=== PATIENT | female | born 1970 | race Caucasian/White ===

== ENCOUNTER 2019-06-22 12:54 | Inpatient (IN) | payer OTHER ==
[~2019-06-22] VITALS: Ht 165.1 cm; Wt 66.4 kg
[2019-06-22] MEDS ORDERED: KETOROLAC TROMETHAMINE 30 MG/ML VIAL IV STA (13:05)
[2019-06-22] MEDS ORDERED: SODIUM CHLORIDE 0.9% 1000ML 1,000 ML IV STA ×2 (13:05→13:17)
[2019-06-22] MEDS ORDERED: ONDANSETRON HCL INJ 2MG/ML 2ML 2 MG/ML VIAL IV STA ×2 (13:05→13:17)
[2019-06-22] MEDS ORDERED: DICYCLOMINE HCL 20 MG/2 ML VIAL IM ONE (13:30)
[2019-06-22 13:56] LABS: BILIRUBIN,URINE SMALL (NEGATIVE); CLARITY,URINE SL CLOUDY (CLEAR); COLOR,URINE YELLOW (YELLOW); KETONES,URINE TRACE (NEGATIVE); LEUKOCYTE ESTERASE ,URINE TRACE (NEGATIVE); NITRITE,URINE NEGATIVE (NEGATIVE); PROTEIN,URINE DIPSTICK 2+ (NEGATIVE); URINE UROBILINOGEN 0.2 mg/dL (0.2 - 1)
[2019-06-22 14:01] LABS: BASOPHILS % 0.2 % (0.0-1.0); HEMATOCRIT 41.1 % (34.2-44.1); HEMOGLOBIN 14.2 g/dL (12.0-16.0); LYMPHOCYTES # (AUTO) 1.6 (1.0-3.2); MEAN CORPUSCULAR HEMOGLOBIN 30.7 pg (28-32); MEAN CORPUSCULAR HGB CONC 34.5 g/dL (31-35); MONOCYTES # (AUTO) 0.7 (0.2-0.8); MONOCYTES % 4.8 % (4.4-11.3); NEUTROPHILS # (AUTO) 12.1 (2.1-6.9); NEUTROPHILS % 83.7 % (38.7-80.0); PLATELET COUNT 376 x10e3/uL (140-360); RED BLOOD COUNT 4.62 x10e6/uL (3.6-5.1)
[2019-06-22 14:10] LABS: BACTERIA,URINE FEW /HPF; CALCIUM OXALATE CRYSTALS,UR MODERATE (FEW); EPITHELIAL CELLS,URINE FEW /LPF; RBC,URINE 0-5 /HPF (0-5)
[2019-06-22 14:24] LABS: ALANINE AMINOTRANSFERASE 13 IU/L (0-55); ALBUMIN 4.5 g/dL (3.5-5.0); ALBUMIN/GLOBULIN RATIO 1.3 (0.8-2.0); ALKALINE PHOSPHATASE 62 IU/L (40-150); ANION GAP 19.5 mmol/L (8-16); BLOOD UREA NITROGEN 10 mg/dL (7-26); BUN/CREATININE RATIO 11 (6-25); CALCIUM 10.2 mg/dL (8.4-10.2); CARBON DIOXIDE 23 mmol/L (22-29); CHLORIDE 97 mmol/L (98-107); CREATINE KINASE 138 IU/L (29-168); CREATININE, SERUM 0.91 mg/dL (0.57-1.11); EST GLOMERULAR FILTRATION RATE > 60 ML/MIN (60-); GLUCOSE 136 mg/dL (74-118); LIPASE 19 U/L (8-78); POTASSIUM 3.5 mmol/L (3.5-5.1); SODIUM 136 mmol/L (136-145)
--- NOTE | 2019-06-22 14:33 | Diagnostic Imaging Report ---
Exam: KUB - 2 views Clinical History: Abdominal pain Comparison: None Findings: Multiple dilated loops of small bowel in the left abdomen measure up to 4.3 cm in maximum diameter with multiple air-fluid levels. There is a possibly of colonic bowel gas. No gas in the rectum. No free air. No abnormal calcifications. The osseous structures appear unremarkable. The visualized portions of the lung bases are clear. Impression: Findings consistent with small bowel obstruction. Dilated loops of small bowel with air-fluid levels measure up to 4.3 cm. No free air. Signed by: Ector Mccormick MD on 06/22/2019 2:29 PM
[2019-06-22] MEDS ORDERED: BENZOCAINE/TETRACAINE/BUTAMBEN AERO SPRAY 56 GM CAN TOP ONE (14:45)
[2019-06-22] MEDS ORDERED: DIATRIZOATE MEGL/DIATRIZOA SOD 30 ML BTL PO ONE (14:56)
[2019-06-22] MEDS ORDERED: IOPAMIDOL 370 MG/ML 200 ML INFUS..BTL INJ ONE (14:56)
[2019-06-22] MEDS ORDERED: SODIUM CHLORIDE 0.9% 50ML 50 ML ONE (14:56)
[2019-06-22] MEDS ORDERED: ONDANSETRON HCL INJ 2MG/ML 2ML 2 MG/ML VIAL IV ONE (15:05)
[2019-06-22] MEDS ORDERED: MORPHINE SULFATE 2 MG/ML SYR 1ML IV STA (15:05)
[2019-06-22] MEDS ORDERED: MORPHINE SULFATE INJ 4 MG/ML INJ 1ML IV ONE (15:15)
--- NOTE | 2019-06-22 15:48 | Diagnostic Imaging Report ---
EXAMINATION: CHEST SINGLE (PORTABLE) INDICATION: NG tube placement COMPARISON: None FINDINGS: LINES/TUBES:NG tube projects below the diaphragm with tip in the stomach and side port in the esophagus above the GE junction. LUNGS:The lungs are well-inflated. No focal consolidation or pulmonary edema. PLEURA:No pleural effusion or pneumothorax. MEDIASTINUM:The cardiomediastinal silhouette appears normal in size and shape. BONES/SOFT TISSUES:No acute osseous injury. ABDOMEN:No free air under the diaphragm. IMPRESSION: NG tube with tip in the stomach and side port in the distal esophagus. Recommend advancing tube approximately 10 cm. Signed by: Ector Mccormick MD on 06/22/2019 3:45 PM
[2019-06-22] MEDS ORDERED: SODIUM CHLORIDE FLUSH 10 ML SYR INJ PRN (16:15)
[2019-06-22] MEDS ORDERED: MORPHINE SULFATE 2 MG/ML SYR 1ML IV PRN (16:15)
[2019-06-22] MEDS: SODIUM CHLORIDE 0.9% 1000ML 1,000 ML IV SCH (16:20)
[2019-06-22] MEDS ORDERED: CITALOPRAM HBR40 MG PO (16:38)
[2019-06-22] MEDS ORDERED: ALPRAZOLAM0.5 MG PO (16:38)
--- NOTE | 2019-06-22 16:46 | Diagnostic Imaging Report ---
EXAM: CT Abdomen and Pelvis WITH intravenous contrast INDICATION: Small bowel obstruction COMPARISON: KUB of earlier the same day TECHNIQUE: Abdomen and pelvis were scanned utilizing a multidetector helical scanner from the lung base to the pubic symphysis after administration of IV contrast. Coronal and sagittal reformations were obtained. Routine protocol was performed. Scan was performed when during portal venous phase. IV CONTRAST: 100mL of Isovue 370 ORAL CONTRAST: Gastrografin COMPLICATIONS: None RADIATION DOSE: Total DLP: 246.6 mGy*cm Dose modulation, iterative reconstruction, and/or weight based adjustment of the mA/kV was utilized to reduce the radiation dose to as low as reasonably achievable. FINDINGS: LOWER THORAX: NG tube terminates in the proximal stomach. HEPATOBILIARY: Geographic hypodense area in the right liver adjacent to the falciform ligament may represent focal fatty infiltration. No other focal liver lesions. No biliary ductal dilation. The gallbladder appears unremarkable. SPLEEN: No splenomegaly. PANCREAS: No focal masses or ductal dilatation. ADRENALS: No adrenal nodules. KIDNEYS/URETERS: No hydronephrosis or renal calculi. Subcentimeter hypodensities in both kidneys are too small to adequately characterize but likely represent cysts. PELVIC ORGANS/BLADDER: Status post hysterectomy. PERITONEUM / RETROPERITONEUM: No free air or fluid. LYMPH NODES: No lymphadenopathy. VESSELS: Mild scattered atherosclerotic calcifications of the nonaneurysmal abdominal aorta and major branches. GI TRACT: There are numerous dilated loops of small bowel with air-fluid levels consistent with small bowel obstruction. The most prominent loops measure up to approximately 3.5 cm in diameter. The transition point appears to be in the right lower quadrant (series 301 image 30). The distal ileum and the colon are decompressed. BONES AND SOFT TISSUES: Unremarkable. IMPRESSION: Small bowel obstruction. Transition point likely in the right lower quadrant. NG tube terminates just beyond the GE junction and should be advanced approximately 10 cm. Signed by: Ector Mccormick MD on 06/22/2019 4:42 PM
[2019-06-22] MEDS: PIPER-TAZ 3.375 GM 50 ML IV SCH ×2 (16:52→22:45)
--- NOTE | 2019-06-22 17:00 | NUR ---
RECD PT FROM EMILIA ZARATE,AAOX3,NGT TO RT BIANCA TO LIS.DENIES PAIN AT THIS TIME.NGT ADVANCED EDIN FLORES.
--- OUTSIDE RECORDS SUMMARY | 2019-06-22 17:08 | XMS REPORT ---
Author Author [facility] Address Unknown Phone Unavailable Care Team Providers Care Attenuator Name Role Phone Dotty DOSS Unavailable Unavailable Problems This patient has no known problems. Allergies, Adverse Reactions, Alerts This patient has no known allergies or adverse reactions. Medications This patient has no known medications. Results Test Description Test Time Test Comments Text Results Atomic Results Result Comments CT ABDOMEN/PELVIS W 2019-06-22 16:22:00 [facility] [address] [address] Patient Name: SAMEER WHEELER MR #: [id number] : 1970 Age/Sex: 49/F Req #: [id number] Adm Physician: Ordered by: RANDA FOURNIER RAIL EXPRESS CLERK Report #: [id number] Location: ER Room/Bed: Procedure: [id number] CT/CT ABDOMEN/PELVIS W Exam Date: 06/22/19 Exam Time: 1550 REPORT STATUS: Signed EXAM: CT Abdomen and Pelvis WITH intravenous contrast INDICATION: Small bowel obstruction COMPARISON: KUB of earlier the same day TECHNIQUE: Abdomen and pelvis were scanned utilizing a multidetector helical scanner from the lung base to the pubic symphysis after administration of IV contrast. Coronal and sagittal reformations were obtained. Routine protocol was performed. Scan was performed when during portal venous phase. IV CONTRAST: 100mL of Isovue 370 ORAL CONTRAST: Gastrografin COMPLICATIONS: None RADIATION DOSE: Total DLP: 246.6 mGy*cm Dose modulation, iterative reconstruction, and/or weight based adjustment of the mA/kV was utilized to reduce the radiation dose to as low as reasonably achievable. FINDINGS: LOWER THORAX: NG tube terminates in the proximal stomach. HEPATOBILIARY: Geographic hypodense area in the right liver adjacent to the falciform ligament may represent focal fatty infiltration. No other focal liver lesions. No biliary ductal dilation. The gallbladder appears unremarkable. SPLEEN: No splenomegaly. PANCREAS: No focal masses or ductal dilatation. ADRENALS: No adrenal nodules. KIDNEYS/URETERS: No hydronephrosis or renal calculi. Subcentimeter hypodensities in both kidneys are too small to adequately characterize but likely represent cysts. PELVIC ORGANS/BLADDER: Status post hysterectomy. PERITONEUM / RETROPERITONEUM: No free air or fluid. LYMPH NODES: No lymphadenopathy. VESSELS: Mild scattered atherosclerotic calcifications of the nonaneurysmal abdominal aorta and major branches. GI TRACT: There are numerous dilated loops of small bowel with air-fluid levels consistent with small bowel obstruction. The most prominent loops measure up to approximately 3.5 cm in diameter. The transition point appears to be in the right lower quadrant (series 301 image 30). The distal ileum and the colon are decompressed. BONES AND SOFT TISSUES: Unremarkable. IMPRESSION: Small bowel obstruction. Transition point likely in the right lower quadrant. NG tube terminates just beyond the GE junction and should be advanced approximately 10 cm. Signed by: Paula Bower MD on 06/22/2019 4:42 PM Dictated By: PAULA BOWER MD 1642 Transcribed By: ADRIEN on 06/22/19 1642 COPY TO: RANDA FOURNIER NP CHEST SINGLE (PORTABLE) 2019-06-22 15:43:00 [address] [place] [address] Patient Name: SAMEER WHEELER MR #: [id number] : 1970 Age/Sex: 49/F Req #: [id number] Adm Physician: Ordered by: RANDA FOURNIER NP Report #: [id number] Location: ER Room/Bed: Procedure: [id number] DX/CHEST SINGLE (PORTABLE) Exam Date: Exam Time: REPORT STATUS: Signed EXAMINATION: CHEST SINGLE (PORTABLE) INDICATION: NG tube placement COMPARISON: None FINDINGS: LINES/TUBES:NG tube projects below the diaphragm with tip in the stomach and side port in the esophagus above the GE junction. LUNGS:The lungs are well-inflated. No focal consolidation or pulmonary edema. PLEURA:No pleural effusion or pneumothorax. MEDIASTINUM:The cardiomediastinal silhouette appears normal in size and shape. BONES/SOFT TISSUES:No acute osseous injury. ABDOMEN:No free air under the diaphragm. IMPRESSION: NG tube with tip in the stomach and side port in the distal esophagus. Recommend advancing tube approximately 10 cm. Signed by: Paula Bower MD on 06/22/2019 3:45 PM Dictated By: PAULA BOWER MD 1545 Transcribed By: ADRIEN on 06/22/19 2098 COPY TO: RANDA FOURNIER RAIL EXPRESS CLERK ABDOMEN 2 VIEW 2019-06-22 14:27:00 [address] [place] [address] Patient Name: SAMEER WHEELER MR #: [id number] : 1970 Age/Sex: 49/F Req #: [id number] Adm Physician: Ordered by: RANDA FOURNIER RAIL EXPRESS CLERK Report #: [id number] Location: ER Room/Bed: Procedure: [id number] DX/ABDOMEN 2 VIEW Exam Date: Exam Time: REPORT STATUS: Signed Exam: KUB - 2 views Clinical History: Abdominal pain Comparison: None Findings: Multiple dilated loops of small bowel in the left abdomen measure up to 4.3 cm in maximum diameter with multiple air-fluid levels. There is a possibly of colonic bowel gas. No gas in the rectum. No free air. No abnormal calcifications. The osseous structures appear unremarkable. The visualized portions of the lung bases are clear. Impression: Findings consistent with small bowel obstruction. Dilated loops of small bowel with air-fluid levels measure up to 4.3 cm. No free air. Signed by: Paula Bower MD on 06/22/2019 2:29 PM Dictated By: PAULA BOWER MD 1429 Transcribed By: ADRIEN on 06/22/191428 COPY TO: RANDA FOURNIER NP
[2019-06-22 17:30] VITALS: BP 178/84
[2019-06-22] MEDS ORDERED: TEMAZEPAM15 MG PO (17:35)
--- NOTE | 2019-06-22 18:27 | Diagnostic Imaging Report ---
EXAM: Abdomen 1 Views INDICATION: ^NGT PLACEMENT ^[id number] ^1750 ^Y COMPARISON: Same day CT FINDINGS: See impression. IMPRESSION: Subdiaphragmatic nasogastric tube with tip projecting over the exact location of gastric antrum. Again seen gaseous distention of small bowel loops. Contrast excretion through the bilateral renal collecting system. Signed by: Dr. Shay Warren MD on 06/22/2019 6:24 PM
[2019-06-22] MEDS: ONDANSETRON HCL INJ 2MG/ML 2ML 2 MG/ML VIAL IV PRN (18:30)
[2019-06-22] MEDS: MORPHINE SULFATE INJ 4 MG/ML INJ 1ML IV PRN ×2 (18:30→22:30)
[2019-06-22] MEDS ORDERED: HYDRALAZINE HCL 20 MG/ML VIAL IV PRN (19:15)
--- NOTE | 2019-06-22 19:51 | NUR ---
RECEIVED PT IN BED .NGT IN PLACE RESPIRATIONS ARE EVEN AND UNLABORED .LAC 20 NS RUNNING AT 125 CC/HR .OMI PAIN CALL LIGT WITH IN REACH .CONTINUE TO MONITOR
[2019-06-22 20:30] VITALS: BP 138/75
[2019-06-22] MEDS: DIPHENHYDRAMINE HCL INJ 50 MG/ML VIAL IV PRN (20:55)
[2019-06-22 21:39] VITALS: BP 138/75
[2019-06-23] VITALS (9 sets, daily range): BP systolic 120–153; BP diastolic 65–86
--- NOTE | 2019-06-23 01:47 | History and Physical ---
CHIEF COMPLAINT: The patient comes in with abdominal pain, nausea and cramps. HISTORY PRESENT ILLNESS: This is . Horacio Land, who started out with abdominal pain on Thursday night. The patient had eaten avocado fried on Thursday and did notice some abdominal pain, but on Thursday night, the patient pain got worse and she had no bowel movement. She had 2 suppositories and also had some Dulcolax and did not have any bowel movement. The patient's nausea continued and this morning she woke up, she had vomiting x6 and also extensive nausea. She was brought into the emergency room by her neighbor and was found to have small-bowel obstruction and admitted for the same. PAST MEDICAL HISTORY: Noncontributory. PAST SURGICAL HISTORY: History of appendectomy, hysterectomy, and . The patient also has a history of BAILEE-1 with early cervical cancer. Otherwise, the patient's surgical history is noncontributory. MEDICATIONS: None. ALLERGIES: THE PATIENT IS ALLERGIC TO DEMEROL. FAMILY HISTORY: Noncontributory. REVIEW OF SYSTEMS: Negative for chest pain. Positive for nausea. Positive vomiting. No diarrhea. Positive for constipation. No rectal bleeding. No hematochezia. No hematemesis. Positive abdominal pain. No diplopia. No blurry vision. Positive for headache. PHYSICAL EXAMINATION: VITAL SIGNS: Temperature is 97.9, pulse of 84, respirations of 18, blood pressure is 178/84. HEENT: Normocephalic, atraumatic. Pupils are reactive to light and accommodation. NG tube in place. CVS: S1 and S2 normal. Regular rate and rhythm. ABDOMEN: Bowel sounds positive right now. Tender in the epigastric and the periumbilical area. No rebound present. EXTREMITIES: No clubbing. No cyanosis. No edema. LABORATORY VALUES: Initial white count is 14,000, hemoglobin 14.2, hematocrit 41.1. Chemistry: Sodium 136, potassium 3.5, BUN of 10, creatinine 0.91. Troponins less than 0.01. The patient's urine shows some cloudiness and also moderate amount of blood in there. IMAGING STUDIES: Initial abdominal x-ray shows finding consistent with small-bowel obstruction. Abdominal CT done shows small bowel obstruction. Transition point likely in the right lower quadrant. NG tube terminates just beyond the GE junction. Chest x-ray within normal limits. NG tube seen and repeat abdominal x-ray shows diaphragmatic nasogastric tube with tip projecting over the exact location of the gastric antrum. ASSESSMENT: Small bowel obstruction. PLAN: Plan is to keep the patient n.p.o. NG tube to suction. The patient will be given IV fluids at 125 mL an hour. Labs to be monitored tomorrow. Surgical consult with Dr. Arzola obtained. The patient's lytes will be monitored. The patient's blood pressure is running high. We will give some IV hydralazine 10 mg as needed for blood pressure above 180 mmHg systolic and 90 above diastolic. Further recommendation per clinical course. The patient risks and benefits of SBO with surgery or nonsurgical treatment has been explained to the patient. MD AVTAR Darnell/MODL /[id number]
[2019-06-23] MEDS: ONDANSETRON HCL INJ 2MG/ML 2ML 2 MG/ML VIAL IV PRN ×6 (02:38→23:45)
[2019-06-23] MEDS: MORPHINE SULFATE INJ 4 MG/ML INJ 1ML IV PRN ×6 (02:48→23:45)
[2019-06-23] MEDS: SODIUM CHLORIDE 0.9% 1000ML 1,000 ML IV SCH ×3 (04:10→16:07)
[2019-06-23 05:34] LABS: BASOPHILS % 0.4 % (0.0-1.0); EOSINOPHILS # (AUTO) 0.1 (0.0-0.4); EOSINOPHILS % 0.6 % (0.0-6.0); HEMATOCRIT 32.3 % (34.2-44.1); LYMPHOCYTES # (AUTO) 1.8 (1.0-3.2); LYMPHOCYTES % 17.9 % (18.0-39.1); MEAN CORPUSCULAR HEMOGLOBIN 31.2 pg (28-32); MEAN CORPUSCULAR HGB CONC 34.1 g/dL (31-35); MEAN CORPUSCULAR VOLUME 91.5 fL (81-99); MONOCYTES # (AUTO) 0.8 (0.2-0.8); MONOCYTES % 7.9 % (4.4-11.3); NEUTROPHILS # (AUTO) 7.3 (2.1-6.9); PLATELET COUNT 260 x10e3/uL (140-360); RED BLOOD COUNT 3.53 x10e6/uL (3.6-5.1); RED CELL DISTRIBUTION WIDTH 12.2 % (11.7-14.4)
[2019-06-23 05:58] LABS: ANION GAP 12.3 mmol/L (8-16); BLOOD UREA NITROGEN 9 mg/dL (7-26); BUN/CREATININE RATIO 12 (6-25); CALCIUM 8.3 mg/dL (8.4-10.2); CARBON DIOXIDE 25 mmol/L (22-29); CHLORIDE 104 mmol/L (98-107); CREATININE, SERUM 0.76 mg/dL (0.57-1.11); EST GLOMERULAR FILTRATION RATE > 60 ML/MIN (60-); GLUCOSE 104 mg/dL (74-118); POTASSIUM 3.3 mmol/L (3.5-5.1); SODIUM 138 mmol/L (136-145)
[2019-06-23] MEDS: PIPER-TAZ 3.375 GM 50 ML IV SCH ×3 (06:00→18:57)
--- NOTE | 2019-06-23 06:02 | NUR ---
PT C/O ITCHING NOTIFIED DR VIERA AND GOT THE ORDER TO GIVE BENADRYL IV .MEDICATED WITH BENADRYL IV
--- NOTE | 2019-06-23 06:56 | Diagnostic Imaging Report ---
EXAM: ABDOMEN 2 VIEW, DATE: 06/23/2019 8:00 AM INDICATION: Small bowel obstruction. COMPARISON: 06/22/2019. FINDINGS: LINES/TUBES: NG/orogastric tube with distal tip projected on the gastric antrum region. BOWEL PATTERN: Multiple mildly dilated small bowel loops without air within the rectum. Small volume of gas within ascending colon. SOFT TISSUES: No abnormal calcifications. No mass effect. LUNG BASES: Clear. BONES: No acute findings. IMPRESSION: No interval change. Findings again suggestive of an obstructive a small bowel gas pattern. Signed by: Dr. Xavier Rao M.D. on 06/23/2019 6:53 AM
--- NOTE | 2019-06-23 07:30 | NUR ---
PT C/0 PAIN AND MEDICATED WITH MORPHINE .IRRIGATED NG TUBE WITH NSX1 .BEDSIDE REPORT GIVEN TO THE ON COMING NURSE.
--- NOTE | 2019-06-23 07:30 | NUR ---
PT IN BED RESTING ,DENIES PAIN NO DISTRES NOTED,NGT TO LIS,TOLERATING WELL,NGT FLUSHED WITH 20 CC H2O
[2019-06-23] MEDS: DIPHENHYDRAMINE HCL INJ 50 MG/ML VIAL IV PRN ×2 (08:47→20:15)
[2019-06-23] MEDS: PANTOPRAZOLE 40 MG 10ML VIAL IV SCH (08:50)
--- NOTE | 2019-06-23 12:25 | NUR ---
PT UP IN BED NGT IN PLACE NO DISTRESS NOTED,
--- NOTE | 2019-06-23 17:22 | Progress Note ---
DATE: SUBJECTIVE: The patient is a 49-year-old female, comes in with small bowel obstruction. Currently, the patient is n.p.o., has an NG tube. She is on Zosyn 3.375 mg q.6 hours for IV antibiotics. The patient is in pain, get some morphine as needed. She also has hydralazine as needed for IV blood pressure medication. No BMs. No flatus and no nausea at this time. OBJECTIVE: VITAL SIGNS: Temperature is 97.6, pulse of 78, respirations of 18, and blood pressure is 128/68. HEENT: Normocephalic, atraumatic. The patient has NG tube to suction. CVS: S1, S2 normal, regular rhythm. ABDOMEN: Slightly distended, tender in the periumbilical area. Positive for very sluggish bowel sounds. EXTREMITIES: No clubbing, no cyanosis, no edema. LABORATORY VALUES: Hemoglobin is 11, hematocrit of 32.3. Chemistries; sodium 138, potassium 3.3, creatinine 0.76. Urine is normal. IMAGING STUDIES: Abdominal x-ray done today shows no interval changes for any and suggestive of obstruction or small bowel pattern. ASSESSMENT: Small bowel obstruction. Continue with IV antibiotics. Continue with IV fluids. Continue with NG suction. Continue with replacement of lytes as needed. Further recommendation and clinical course, we will discuss with the patient and Dr. Arzola is on board in the case. MD AVTAR Darnell/MODL /[id number]
--- NOTE | 2019-06-23 17:34 | NUR ---
DR HUYNH HERE.OK TO GIVE ANTIDEPRESSANT MED CLAMP NGT FOR THIRY MINUTED,PAIN LEVEL 3
--- NOTE | 2019-06-23 20:20 | NUR ---
PATIENT AOX3, NO DISTRESS NOTED. PATIENT COMPLAINED OF ITCHING AND WAS MEDICATED ORDERED. PATIENT ALSO VOICES A PAIN RATING OF 1, FAMILY MEMBER AT BEDSIDE, NG TUBE IS PATENT. BED LOCKED AND LOW, CALL LIGHT WITHIN EASY REACH, WILL CONTINUE TO MONITOR.
[2019-06-24] VITALS (7 sets, daily range): BP systolic 131–142; BP diastolic 70–83
[2019-06-24] MEDS: SODIUM CHLORIDE 0.9% 1000ML 1,000 ML IV SCH ×4 (00:05→23:42)
[2019-06-24] MEDS: PIPER-TAZ 3.375 GM 50 ML IV SCH ×4 (00:05→17:21)
--- NOTE | 2019-06-24 00:15 | NUR ---
PATIENT VOICED THAT SHE WAS IN EXTREME PAIN AND VERY NAUSEAS. PATIENT WAS MEDICATED ORDERED, CALL LIGHT WITHIN REACH WILL CONTINUE TO MONITOR.
--- NOTE | 2019-06-24 00:50 | NUR ---
PATIENT VOICED THAT SHE IS FEELING LESS PAIN AND NO NAUSEA. CURRENTLY RESTING COMFORTABLY, CONTINUING TO MONITOR.
[2019-06-24] MEDS: MORPHINE SULFATE INJ 4 MG/ML INJ 1ML IV PRN (05:25)
[2019-06-24] MEDS: ONDANSETRON HCL INJ 2MG/ML 2ML 2 MG/ML VIAL IV PRN ×3 (05:25→21:32)
[2019-06-24 05:55] LABS: BASOPHILS % 0.3 % (0.0-1.0); EOSINOPHILS # (AUTO) 0.1 (0.0-0.4); EOSINOPHILS % 0.8 % (0.0-6.0); HEMATOCRIT 32.5 % (34.2-44.1); HEMOGLOBIN 10.7 g/dL (12.0-16.0); LYMPHOCYTES # (AUTO) 1.1 (1.0-3.2); LYMPHOCYTES % 17.3 % (18.0-39.1); MEAN CORPUSCULAR HEMOGLOBIN 30.2 pg (28-32); MEAN CORPUSCULAR HGB CONC 32.9 g/dL (31-35); MEAN CORPUSCULAR VOLUME 91.8 fL (81-99); MONOCYTES # (AUTO) 0.6 (0.2-0.8); MONOCYTES % 9.2 % (4.4-11.3); NEUTROPHILS # (AUTO) 4.6 (2.1-6.9); NEUTROPHILS % 72.2 % (38.7-80.0); PLATELET COUNT 244 x10e3/uL (140-360); RED BLOOD COUNT 3.54 x10e6/uL (3.6-5.1); RED CELL DISTRIBUTION WIDTH 11.9 % (11.7-14.4)
[2019-06-24 06:18] LABS: ANION GAP 14.5 mmol/L (8-16); BLOOD UREA NITROGEN 10 mg/dL (7-26); BUN/CREATININE RATIO 14 (6-25); CALCIUM 8.5 mg/dL (8.4-10.2); CARBON DIOXIDE 21 mmol/L (22-29); CHLORIDE 106 mmol/L (98-107); CREATININE, SERUM 0.74 mg/dL (0.57-1.11); EST GLOMERULAR FILTRATION RATE > 60 ML/MIN (60-); GLUCOSE 76 mg/dL (74-118); POTASSIUM 3.5 mmol/L (3.5-5.1); SODIUM 138 mmol/L (136-145)
--- NOTE | 2019-06-24 06:20 | NUR ---
PATIENT LEAVING FOR X-RAY
--- NOTE | 2019-06-24 06:39 | NUR ---
PATIENT RETURNED FROM X-RAY
--- NOTE | 2019-06-24 06:46 | Diagnostic Imaging Report ---
EXAM: ABDOMEN ACUTE SERIES W/PA CXR, 3 views DATE: 06/24/2019 INDICATION: Small bowel obstruction. COMPARISON: KUB dated 06/23/2019. Chest x-ray dated 06/22/2019. FINDINGS: LINES/TUBES: NG/orogastric tube looped within the gastric body, with distal tip projected on the gastric antrum region. LUNGS:The lungs are well-inflated. No focal consolidation or pulmonary edema. PLEURA:No pleural effusion or pneumothorax. MEDIASTINUM:The cardiomediastinal silhouette appears normal in size and shape. BONES/SOFT TISSUES:No acute osseous injury. BOWEL PATTERN: Interval increase in degree of dilatation of multiple small bowel loops with air-fluid level on the upright view.. SOFT TISSUES: No abnormal calcifications. No pneumoperitoneum. BONES: No acute findings. IMPRESSION: Interval increase in degree of dilatation of multiple small bowel loops with air-fluid level on the upright view. Stable nasogastric tube. Signed by: Dr. Xavier Rao M.D. on 06/24/2019 6:43 AM
--- NOTE | 2019-06-24 07:00 | NUR ---
RECEIVED AM REPORT FROM NURSE, MORNING ROUNDS DONE. PT IS ALERT RESTING IN BED. NO S/S OF DISTRESS. PT HAS NO COMPLAINTS AT THIS TIME. CALL LIGHT WITHIN REACH, INSTRUCTED TO CALL RN FOR HELP
[2019-06-24] MEDS: PANTOPRAZOLE 40 MG 10ML VIAL IV SCH (08:13)
[2019-06-24] MEDS: ALPRAZOLAM 0.5 MG TAB PO SCH ×2 (08:13→17:21)
[2019-06-24] MEDS: CITALOPRAM HYDROBROMIDE 20 MG TAB PO SCH (08:13)
[2019-06-24] MEDS ORDERED: NON-FORMULARY MEDICATION (Citalopram Hydrobromide (Citalopram Hbr) 40 MG) PO SCH (09:00)
--- NOTE | 2019-06-24 09:00 | Progress Note ---
DATE: SUBJECTIVE: A 49-year-old female, who comes in with small bowel obstruction. No gas, no flatus, no bowel movements. The patient still has abdominal pain, went for KUB this morning, no results yet. The patient has been seen by Dr. Tarik Arzola. Scope was planned for today. OBJECTIVE: VITAL SIGNS: Temperature is 97.4, pulse of 78, respirations of 18, blood pressure is 133/83, pulse oximetry of 94%. HEENT: Normocephalic, atraumatic. Pupils are reactive to light and accommodation. CVS: S1, S2 normal. Regular rate and rhythm. ABDOMEN: Nondistended. Positive for some bowel sounds today. EXTREMITIES: No clubbing, no cyanosis, no edema. LABORATORY DATA: Hemoglobin is 10.7, hematocrit of 32.5, white count is 6.42. Chemistries; 138, potassium is 3.5, BUN of 10, creatinine 0.74. IMAGING STUDIES: Again acute abdominal series done today. No reports yet. ASSESSMENT: 1. Small-bowel obstruction. 2. Abdominal pain. PLAN: Continue with IV pain medication. The patient will wait for the KUB today. Continue monitoring the lytes. The patient's white count is down. Leukocytosis is better. We will continue on Zosyn. Further recommendations per clinical course and also we will discuss case with Dr. Arzola about scope. MD LOLI DarnellJ/MODL /[id number]
[2019-06-24] MEDS ORDERED: BUPIVACAINE 0.5%/EPI 30 ML SDV INJ ONE (09:45)
[2019-06-24] MEDS ORDERED: BUPIVACAINE 0.25%/EPI 30ML SDV INJ ONE (09:46)
[2019-06-24] MEDS ORDERED: ACETAMINOPHEN 1000 MG/100 ML IV PRN (12:15)
[2019-06-24] MEDS: SODIUM CHLORIDE 0.9% 250ML IRRIG IR SCH ×3 (12:15→21:15)
--- NOTE | 2019-06-24 13:11 | Operative Report ---
DATE OF PROCEDURE: 06/24/2019 SURGEON: Tarik Arzola MD PREOPERATIVE DIAGNOSIS: Small bowel obstruction. POSTOPERATIVE DIAGNOSES: Small-bowel obstruction secondary to pelvic adhesions and acute edematous cholecystitis. OPERATIONS PERFORMED: Diagnostic laparoscopy, laparoscopic lysis of adhesions with release of small-bowel obstruction and laparoscopic cholecystectomy. EFFERVESCENT SALTS COMPOUNDER: ESAU Mccoy. ANESTHESIA: General. COMPLICATIONS: None. ESTIMATED BLOOD LOSS: Minimal. DESCRIPTION OF PROCEDURE: With the patient lying in bed in the supine position under good general endotracheal anesthesia, the abdomen was prepped with Betadine solution and draped in the usual manner. A Veress needle was introduced into the right upper quadrant and pneumoperitoneum was established without any difficulty. A 5 mm trocar was placed in the right upper quadrant. A 5 mm videolaparoscope was placed into the intraabdominal cavity. Under direct vision, a 5 mm trocar was placed in the left lower quadrant, and another 10 mm trocar was placed in the umbilicus. Video laparoscopy at this point, revealed a distended edematous gallbladder with some adhesions. The small bowel was significantly distended. At the level of the terminal ileum, the bowel became decompressed. The cecum also appeared to be within normal limits. We started then at this point to run the bowel from the terminal ileum backward and a loop of adhesions in the pelvis was encountered, which was the cause of the obstruction. The bowel was then released from where it was entrapped and the adhesions were lysed. After this was done, we were then able to run the bowel from the ligament of Treitz all the way up to the terminal ileum and this showed no secondary point of obstruction, so the small bowel obstruction was totally released. At this point, we went back and looked at the gallbladder again and it was rather edematous in the wall and I decided that it would be safest to remove it, as it was rather tensely distended and edematous, and we did not want her risk the chance of the patient developing gangrenous cholecystitis postoperatively. The adhesions to the gallbladder were then slowly and carefully taken down. The peritoneum overlying the neck of the gallbladder was then opened and the cystic duct was identified. The cystic duct was followed to its junction with the common duct. The cystic duct was then circumferentially dissected away from the common duct, doubly clipped and divided. The cystic artery was similarly doubly clipped and divided. The gallbladder was then slowly and carefully taken off the liver bed using the cautery scissors. There was a lot of edema of the liver bed. Nonetheless, the gallbladder was totally and completely removed, and hemostasis was ascertained. The gallbladder was grasped through the umbilical port and removed without any difficulty. Video laparoscopy was then again carried out. The whole area was thoroughly irrigated. Perfect hemostasis was ascertained. All of the excess fluid was aspirated. The pneumoperitoneum was evacuated and all the trocars were removed under direct vision. The midline fascia at the umbilicus was then closed with a [id number] of 0 Vicryl. All layers were infiltrated on the way out with solution of 0.25% Marcaine, subcutaneous tissue was approximated with 3-0 Vicryl, and all puncture wounds were closed with subcuticular 5-0 Vicryl. Benzoin, Steri-Strips, and Band-Aids were applied. The sponge, lap, and needle counts were correct. The patient tolerated the procedure well and returned to the recovery room in stable condition. MD MADELYN Andrea/HOMERO /[id number]
[2019-06-24] MEDS: HYDROMORPHONE 1MG/1ML INJ IV PRN ×3 (14:40→21:33)
[2019-06-24] MEDS ORDERED: DEXAMETHASONE SOD PHOS INJ 4 MG/ML VIAL ONE (18:48)
[2019-06-24] MEDS ORDERED: PROPOFOL IV EMULSION 10 MG/ML 20 ML VIAL ONE (18:48)
[2019-06-24] MEDS ORDERED: ONDANSETRON HCL INJ 2MG/ML 2ML 2 MG/ML VIAL ONE (18:48)
[2019-06-24] MEDS ORDERED: LIDOCAINE HCL 2% LOCAL INJ 5 ML SDV VIAL INJ ONE (18:48)
[2019-06-24] MEDS ORDERED: ACETAMINOPHEN 1000 MG/100 ML IV ONE (18:48)
[2019-06-24] MEDS ORDERED: ROCURONIUM BROMIDE 10 MG/ML 5ML VIAL ONE (18:48)
[2019-06-24] MEDS ORDERED: SEVOFLURANE INHAL SOLN 250 ML PEN BTL ONE (18:48)
[2019-06-24] MEDS ORDERED: GLYCOPYRROLATE INJ 1MG/ 5 ML SYR ONE (18:48)
[2019-06-24] MEDS ORDERED: NEOSTIGMINE 5 MG/5ML SYR ONE (18:48)
[2019-06-24] MEDS ORDERED: FENTANYL CITRATE/PF 100MCG/2 ML INJ ONE (18:54)
[2019-06-24] MEDS ORDERED: MIDAZOLAM HCL 2 MG/2 ML VIAL ONE (18:54)
[2019-06-25] VITALS (7 sets, daily range): BP systolic 127–141; BP diastolic 65–88
[2019-06-25] MEDS: HYDROMORPHONE 1MG/1ML INJ IV PRN ×3 (00:20→21:40)
[2019-06-25] MEDS: PIPER-TAZ 3.375 GM 50 ML IV SCH ×5 (00:20→23:41)
[2019-06-25] MEDS: SODIUM CHLORIDE 0.9% 250ML IRRIG IR SCH ×7 (00:30→23:33)
[2019-06-25] MEDS: DIPHENHYDRAMINE HCL INJ 50 MG/ML VIAL IV PRN (03:00)
--- NOTE | 2019-06-25 03:30 | NUR ---
PATIENTS IV WAS DISLODGED FROM LEFT AC. PATIENT'S IV SITE IS NOW AT THE RIGHT HAND 22 GAUGE, IT IS PATENT AND FLOWING.
[2019-06-25] MEDS: ONDANSETRON HCL INJ 2MG/ML 2ML 2 MG/ML VIAL IV PRN ×2 (04:22→21:40)
[2019-06-25 06:26] LABS: BASOPHILS % 0.1 % (0.0-1.0); EOSINOPHILS % 0.1 % (0.0-6.0); HEMATOCRIT 30.6 % (34.2-44.1); HEMOGLOBIN 10.2 g/dL (12.0-16.0); LYMPHOCYTES # (AUTO) 1.6 (1.0-3.2); LYMPHOCYTES % 19.3 % (18.0-39.1); MEAN CORPUSCULAR HEMOGLOBIN 30.3 pg (28-32); MEAN CORPUSCULAR HGB CONC 33.3 g/dL (31-35); MEAN CORPUSCULAR VOLUME 90.8 fL (81-99); MONOCYTES # (AUTO) 0.7 (0.2-0.8); MONOCYTES % 8.7 % (4.4-11.3); NEUTROPHILS # (AUTO) 5.8 (2.1-6.9); NEUTROPHILS % 71.6 % (38.7-80.0); PLATELET COUNT 239 x10e3/uL (140-360); RED BLOOD COUNT 3.37 x10e6/uL (3.6-5.1); RED CELL DISTRIBUTION WIDTH 11.9 % (11.7-14.4)
[2019-06-25 06:51] LABS: ANION GAP 12.9 mmol/L (8-16); BLOOD UREA NITROGEN 6 mg/dL (7-26); BUN/CREATININE RATIO 9 (6-25); CALCIUM 8.4 mg/dL (8.4-10.2); CARBON DIOXIDE 25 mmol/L (22-29); CHLORIDE 106 mmol/L (98-107); CREATININE, SERUM 0.65 mg/dL (0.57-1.11); EST GLOMERULAR FILTRATION RATE > 60 ML/MIN (60-); GLUCOSE 99 mg/dL (74-118); POTASSIUM 3.9 mmol/L (3.5-5.1); SODIUM 140 mmol/L (136-145)
--- NOTE | 2019-06-25 07:40 | Progress Note ---
DATE: SUBJECTIVE: The patient is status post laparoscopic cholecystectomy and status post laparoscopic lysis of adhesion. The patient is comfortable today. Pain is better. Having ice chips. No complaints. No gas and no BMs noted at this time. OBJECTIVE: VITAL SIGNS: Temperature is 96.5, pulse of 64, respirations of 20, blood pressure is 136/74, and pulse ox of 97%. HEENT: Has an NG tube to suction. ABDOMEN: Nondistended and nontender. Bowel sounds are very sluggish. LUNGS: Clear to auscultation. CVS: S1 and S2 normal. ABDOMEN: Otherwise normal. EXTREMITIES: No clubbing, no cyanosis, no edema. LABORATORY VALUES: White count is 8000, hemoglobin of 10.2, and hematocrit 30.6. Chemistry; sodium of 140, potassium 3.9, BUN of 6, and creatinine 0.69. Urine is normal. Urine culture final shows no contamination. ASSESSMENT: 1. Small bowel obstruction, status post adhesiolysis and cholecystectomy. 2. Abdominal pain. 3. Leukocytosis. PLAN: Continue IV medication. Continue with Zosyn and IV fluids. The patient is slowly improving and getting better. Further recommendation per clinical course, and also depending on postsurgical course. MD AVTAR Darnell/LORAL /[id number]
[2019-06-25] MEDS: SODIUM CHLORIDE 0.9% 1000ML 1,000 ML IV SCH ×4 (08:07→23:35)
[2019-06-25] MEDS: CITALOPRAM HYDROBROMIDE 20 MG TAB PO SCH (08:48)
[2019-06-25] MEDS: ALPRAZOLAM 0.5 MG TAB PO SCH ×2 (08:48→17:00)
[2019-06-25] MEDS: PANTOPRAZOLE 40 MG 10ML VIAL IV SCH (12:25)
--- NOTE | 2019-06-25 16:57 | NUR ---
ENTERED PT'S ROOM AND PT HAD PULLED OUT NG TUBE HERSELF. PT STATED THE REASON WAS BECAUSE IT WAS UNCOMFORTABLE AND THAT SHE HAS BEEN WAITING ON THE DOCTOR ALL DAY.
[2019-06-25] MEDS ORDERED: BISACODYL 10 MG SUPP PR NR (18:00)
--- NOTE | 2019-06-25 20:55 | NUR ---
PATIENT HAD A BOWEL MOVEMENT OF LIQUID BROWN STOOL. DR. HUYNH APPROVED FOR PATIENT TO UPGRADE FROM NPO TO CLEAR LIQUID DIET.
[2019-06-26] VITALS (8 sets, daily range): BP systolic 123–165; BP diastolic 73–86
[2019-06-26] MEDS: DIPHENHYDRAMINE HCL INJ 50 MG/ML VIAL IV PRN ×3 (00:59→21:05)
[2019-06-26] MEDS: HYDROMORPHONE 1MG/1ML INJ IV PRN ×6 (00:59→21:05)
[2019-06-26] MEDS: SODIUM CHLORIDE 0.9% 250ML IRRIG IR SCH ×2 (02:42→08:15)
[2019-06-26] MEDS: ONDANSETRON HCL INJ 2MG/ML 2ML 2 MG/ML VIAL IV PRN ×3 (04:40→13:04)
[2019-06-26] MEDS: PIPER-TAZ 3.375 GM 50 ML IV SCH ×4 (06:19→23:45)
[2019-06-26] MEDS: PANTOPRAZOLE 40 MG 10ML VIAL IV SCH (08:52)
[2019-06-26] MEDS: ALPRAZOLAM 0.5 MG TAB PO SCH ×2 (08:52→16:45)
[2019-06-26] MEDS: CITALOPRAM HYDROBROMIDE 20 MG TAB PO SCH (08:52)
[2019-06-26 08:57] LABS: BASOPHILS % 0.4 % (0.0-1.0); EOSINOPHILS # (AUTO) 0.1 (0.0-0.4); HEMATOCRIT 31.2 % (34.2-44.1); HEMOGLOBIN 10.5 g/dL (12.0-16.0); LYMPHOCYTES # (AUTO) 1.6 (1.0-3.2); LYMPHOCYTES % 23.3 % (18.0-39.1); MEAN CORPUSCULAR HEMOGLOBIN 31.2 pg (28-32); MEAN CORPUSCULAR HGB CONC 33.7 g/dL (31-35); MEAN CORPUSCULAR VOLUME 92.6 fL (81-99); MONOCYTES # (AUTO) 0.4 (0.2-0.8); MONOCYTES % 6.5 % (4.4-11.3); NEUTROPHILS # (AUTO) 4.7 (2.1-6.9); NEUTROPHILS % 68.5 % (38.7-80.0); PLATELET COUNT 239 x10e3/uL (140-360); RED BLOOD COUNT 3.37 x10e6/uL (3.6-5.1)
[2019-06-26 09:14] LABS: ANION GAP 11.9 mmol/L (8-16); BLOOD UREA NITROGEN < 5 mg/dL (7-26); CALCIUM 8.4 mg/dL (8.4-10.2); CARBON DIOXIDE 25 mmol/L (22-29); CHLORIDE 104 mmol/L (98-107); CREATININE, SERUM 0.73 mg/dL (0.57-1.11); EST GLOMERULAR FILTRATION RATE > 60 ML/MIN (60-); GLUCOSE 145 mg/dL (74-118); SODIUM 138 mmol/L (136-145)
[2019-06-26 09:21] LABS: BUN/CREATININE RATIO 7 (6-25); POTASSIUM 2.9 mmol/L (3.5-5.1)
[2019-06-26] MEDS: SODIUM CHLORIDE 0.9% 1000ML 1,000 ML IV SCH ×2 (09:52→16:07)
--- NOTE | 2019-06-26 10:12 | Progress Note ---
DATE: SUBJECTIVE: The patient is here for small bowel obstruction. The patient underwent a laparoscopic adhesiolysis and also cholecystectomy, feeling well, walking around, had a bowel movement. Bowel sounds are positive. NG tube out. She is on clears and tolerating it very well. OBJECTIVE: VITAL SIGNS: Temperature is 98.2, has been afebrile for the last 48 hours, respirations of 20, blood pressure is 148/75. HEENT: Normocephalic, atraumatic. Pupils are reactive to light and accommodation. CVS: S1, S2 normal. Regular rate and rhythm. ABDOMEN: Nontender, nondistended. Bowel sounds are positive. Trocar scars are normal and healing. EXTREMITIES: No clubbing, no cyanosis, no edema. LABORATORY VALUES: Chemistries; today's BUN and creatinine were normal at 6 and 0.68. GFR above 60. Urine is normal. ASSESSMENT: 1. Small-bowel obstruction, status post adhesiolysis and cholecystectomy. 2. Abdominal pain, better. 3. Leukocytosis, better. PLAN: Continue on IV fluids, on Zosyn. Discharge planning tomorrow if tolerating regular foods. MD AVTAR Darnell/LORAL /[id number]
--- NOTE | 2019-06-26 10:21 | NUR ---
CALLED AND INFORMED DR. VIERA OF PATIENT'S POTASSIUM OF 2.9- NEW ORDER RECEIVED.
[2019-06-26] MEDS ORDERED: POTASSIUM CHLORIDE 20MEQ/100ML 200 ML IV NR (10:30)
--- NOTE | 2019-06-26 14:30 | NUR ---
Visit made by the Spiritual Care Department Pastoral Visitor, Edison Baldwin. PV provided pastoral presence, hospitality, and supportive listening. Pastoral Visitor informed pt/family of the scope of Medical Lab Assistant Services and availability. BARBIE JONES Optics Engineer Spiritual Care Department O: [phone] Pager: [phone] ([phone] calling from)
[2019-06-26] MEDS ORDERED: HYDROCODONE/APAP 7.5MG-325MG 1 EA TAB PO PRN (18:15)
--- NOTE | 2019-06-26 19:27 | NUR ---
PATIENT IN STABLE CONDITION WITH NO S/S OF RESPIRATORY DISTRESS. NO PAIN VOICED. IV FLUIDS INFUSING. CALL LIGHT IS WITHIN REACH, PATIENT INSTRUCTED TO CALL FOR ASSISTANCE NEEDED. BEDSIDE REPORT GIVEN TO ONCOMING NURSE.
--- NOTE | 2019-06-26 20:00 | NUR ---
INITIAL ASSESSMENT COMPLETE, VS STABLE, CALL LIGHT IN REACH, PT WALKS IN HALLWAY, IV INTACT, TROCAR SITES ON ABD X 5, CDI WITH STERISTRIPS, NO DISTRESS NOTED,
[2019-06-26] MEDS: BISACODYL 10 MG SUPP PR SCH (21:00)
[2019-06-27] VITALS: BP 143/87
[2019-06-27 04:28] VITALS: BP 145/83
[2019-06-27] MEDS: HYDROMORPHONE 1MG/1ML INJ IV PRN ×4 (05:41→17:38)
[2019-06-27] MEDS: PIPER-TAZ 3.375 GM 50 ML IV SCH ×3 (06:00→16:33)
[2019-06-27 06:05] LABS: HEMATOCRIT 29.9 % (34.2-44.1); HEMOGLOBIN 9.9 g/dL (12.0-16.0); MEAN CORPUSCULAR HEMOGLOBIN 30.3 pg (28-32); MEAN CORPUSCULAR HGB CONC 33.1 g/dL (31-35); MEAN CORPUSCULAR VOLUME 91.4 fL (81-99); PLATELET COUNT 259 x10e3/uL (140-360); RED BLOOD COUNT 3.27 x10e6/uL (3.6-5.1); RED CELL DISTRIBUTION WIDTH 12.1 % (11.7-14.4)
[2019-06-27 06:32] LABS: ANION GAP 12.1 mmol/L (8-16); CALCIUM 8.5 mg/dL (8.4-10.2); CARBON DIOXIDE 23 mmol/L (22-29); CHLORIDE 108 mmol/L (98-107); CREATININE, SERUM 0.63 mg/dL (0.57-1.11); EST GLOMERULAR FILTRATION RATE > 60 ML/MIN (60-); GLUCOSE 104 mg/dL (74-118); POTASSIUM 3.1 mmol/L (3.5-5.1); SODIUM 140 mmol/L (136-145)
[2019-06-27 06:50] LABS: BLOOD UREA NITROGEN < 2 mg/dL (7-26); BUN/CREATININE RATIO 3 (6-25)
--- NOTE | 2019-06-27 07:46 | Progress Note ---
DATE: SUBJECTIVE: The patient is a 49-year-old female, status post bowel adhesiolysis and also cholecystectomy, currently doing very well, tolerating foods and diet, bowel movements are positive, bowel sounds are positive. The patient is walking around. OBJECTIVE: VITAL SIGNS: Temperature 98.3, pulse of 67, blood pressure is 145/83, pulse oximetry of 94%. HEENT: Normocephalic, atraumatic. Pupils are reactive to light and accommodation. CVS: S1 and S2 normal. Regular rate and rhythm. ABDOMEN: Nontender and nondistended. Bowel sounds positive. EXTREMITIES: No edema and no clubbing. LABORATORY VALUES: White count is normal, hemoglobin of 9.9, hematocrit of 29.9. Potassium is 3.1, BUN of less than 2, creatinine 0.63. ASSESSMENT: 1. Small bowel obstruction, status post adhesiolysis. 2. Abdominal pain, better. 3. Leukocytosis, better. PLAN: Discharge home today if okay with Surgery. Continue with bland diet and soft mechanical diet. Further recommendation per clinical course. The patient can be discharged again today. MD LOLI DarnellJ/MODL /[id number]
[2019-06-27 07:57] VITALS: BP 149/72
[2019-06-27 08:00] VITALS: BP 149/72
[2019-06-27] MEDS: BISACODYL 10 MG SUPP PR SCH (08:00)
[2019-06-27] MEDS: PANTOPRAZOLE 40 MG 10ML VIAL IV SCH (08:12)
[2019-06-27] MEDS: ALPRAZOLAM 0.5 MG TAB PO SCH ×2 (08:12→16:33)
[2019-06-27] MEDS: CITALOPRAM HYDROBROMIDE 20 MG TAB PO SCH (08:12)
[2019-06-27 11:25] VITALS: BP 139/74
[2019-06-27] MEDS ORDERED: POTASSIUM CHLORIDE 20 MEQ TAB CR PO ONE (12:00)
[2019-06-27 15:51] VITALS: BP 146/70
[2019-06-27] MEDS ORDERED: TYLENOL WITH C1 EACH PO (18:22)
--- NOTE | 2019-06-27 19:23 | NUR ---
Pt discharged to home at this time. Pt verbalized understanding of all discharge instructions. 0 s/s of acute distress noted.
== END 2019-06-27 18:41 | disposition home or self-care (01) | DRG 337 ==
LOC: ER 12:54 → ERHOLD 16:07 → MED/SURG3 17:15
PROVIDERS: ADMIT Family Medicine; ATTEND Family Medicine
PROC: 0DN84ZZ Release Small Intestine, Percutaneous Endoscopic Approach (ICD-10-PCS; principal; 2019-06-22)
PROC: 0FT44ZZ Resection of Gallbladder, Percutaneous Endoscopic Approach (ICD-10-PCS; 2019-06-22)
DX: K56.50 Intestinal adhesions [bands], unspecified as to partial versus complete obstruction (principal); Z40.09 Encounter for prophylactic removal of other organ; D72.829 Elevated white blood cell count, unspecified; Z85.41 Personal history of malignant neoplasm of cervix uteri; Z90.710 Acquired absence of both cervix and uterus
CPT/HCPCS: 36415; 71045; 74018; 74019; 74022; 74177; 80048; 80053; 81001; 82550; 82553; 83690; 84484; 85007; 85025; 85027; 87086; 88304; 99284; C1766; J0500; J1100; J1170; J1200; J2001; J2250; J2270; J2405; J2543; J3010; J3480; J7030; Q9967